=== PATIENT | female | born 1985 | race Caucasian/White ===

== ENCOUNTER 2019-05-04 16:10 | Emergency (ER) | payer OTHER ==
[~2019-05-04] VITALS: Ht 160 cm; Wt 48.1 kg
[2019-05-04 16:16] VITALS: BP 127/89
--- NOTE | 2019-05-04 16:25 | NUR ---
AMB TO BED 11
--- NOTE | 2019-05-04 16:29 | NUR ---
33/F BIB SELF C/O LEFT HEAD PAIN RADIATING TO LT NECK/SHOULDER/CHEST X 4 DAYS. STATES SOB, NAUSEA WITHOUT VOMITING. LAST BM 3 DAYS AGO. HAS TRIED: FIORCET, FLEXERIL, ACUPUNCTURE, HOT/COLD PACKS TO NO RELIEF. MED HX: ANXIETY, DEPRESSION, RA, IBS WITH CONSTIPATION. PATIENT STATES PAIN OF 7/10 AT THIS TIME. PATIENT POSITIONED FOR COMFORT; HOB ELEVATED; BEDRAILS UP X1; BED DOWN. ER MD MADE AWARE OF PT STATUS.
--- NOTE | 2019-05-04 17:13 | NUR ---
DR BUI EVALUATING PT AT BEDSIDE
[2019-05-04] MEDS ORDERED: KETOROLAC 30 MG/ML VIAL IM ONE (17:25)
[2019-05-04] MEDS ORDERED: NACL 0.9% 1,000 ML IV ONE (17:25)
[2019-05-04] MEDS ORDERED: ONDANSETRON 4 MG/2 ML VIAL IVP ONE (18:10)
[2019-05-04] MEDS ORDERED: MORPHINE SULFATE 4 MG/ML SYR IVP ONE (18:10)
[2019-05-04 19:22] VITALS: BP 118/81
== END 2019-05-04 19:24 | disposition home or self-care (01) ==
LOC: MED 16:10
DX: R51 Headache (principal); R06.02 Shortness of breath; R11.0 Nausea; F32.9 Major depressive disorder, single episode, unspecified; Z88.8 Allergy status to other drugs, medicaments and biological substances; Z91.018 Allergy to other foods
CPT/HCPCS: 96372; 96374; 96375; 99284; J1885; J2270; J2405; J7030